=== PATIENT | female | born 1995 | race Caucasian/White ===

== ENCOUNTER 2016-06-09 01:54 | Emergency (ER) | payer BC ==
[~2016-06-09] VITALS: Ht 162.6 cm; Wt 66.7 kg
[2016-06-09 02:09] VITALS: TEMP 36.4; Ht 162.6 cm; Wt 66.7 kg
[2016-06-09] MEDS ORDERED: BCPILLS PO (02:33)
[2016-06-09 02:50] VITALS: BP 109/95; PULSE 93; O2SAT 100
--- NOTE | 2016-06-09 07:55 | DIAGNOSTIC IMAGING REPORT ---
LEFT THUMB 3 VIEWS CLINICAL HISTORY: Left thumb injury. FINDINGS: 3 portable views of the left thumb are obtained. No prior studies are available for comparison at the time of dictation. The skeletal structures are well mineralized. There is posterior dislocation at the first metacarpophalangeal joint. No definite fracture is seen. Overlying soft tissue edema is noted. The first carpometacarpal and interphalangeal joints are well-maintained. IMPRESSION: 1. There is posterior dislocation at the first metacarpophalangeal joint with overlying soft tissue edema. 2. No definite fracture is seen. Electronically signed by: Contreras Baumann M.D. 06/09/2016 7:53 AM Dictated Date/Time: 06/09/2016 7:52 AM
--- NOTE | 2016-06-09 07:56 | DIAGNOSTIC IMAGING REPORT ---
LEFT THUMB 3 VIEWS CLINICAL HISTORY: Postreduction examination. FINDINGS: 3 portable views of left thumb are compared to study performed earlier the same day 06/09/2016. The skeletal structures are well mineralized. There is been successful reduction of the dislocated first metacarpophalangeal joint with confucianism of near-anatomic alignment. The first carpometacarpal and interphalangeal joints are preserved. No fracture is seen. Mild overlying soft tissue edema is noted. IMPRESSION: 1. Successful reduction of the dislocated first metacarpophalangeal joint. 2. No fracture is identified. Electronically signed by: Contreras Baumann M.D. 06/09/2016 7:54 AM Dictated Date/Time: 06/09/2016 7:53 AM
--- NOTE | 2016-06-09 23:25 | EMERGENCY ROOM VISIT NOTE ---
ED Visit Note First contact with patient: 02:15 CHIEF COMPLAINT: Finger injury today HISTORY OF PRESENT ILLNESS: This 20 year old female patient presents to the emergency department after they injured the left 1st finger about one hour ago. The patient states that she was leaving a bar, when she slipped, and jammed her finger against a wall. The patient has been unable to move it at the PIP joint since and there is moderate and constant pain. The patient rates the pain as dull and 6/10. No previous injuries to the finger. The patient has taken nothing relief of the pain. REVIEW OF SYSTEMS: A 6 system review of systems was completed with positives and pertinent negatives listed in the HPI. ALLERGIES: Amoxicillin MEDICATIONS: No chronic medications PMH: Otherwise healthy SOCIAL HISTORY: Student who lives locally PHYSICAL EXAM: Vital Signs: Reviewed Nurse's notes, vital signs stable. GENERAL : White female, in no acute distress, but appears to be in pain, well-developed , well-nourished. MUSCULOSKELETAL: There is an obvious deformity at the proximal joint of the first finger with dorsal dislocation of the middle phalanx. The patient is unable to move the distal joint. The distal dislocated portion of the finger is pale but is sensate. SKIN: There is no laceration or abrasion. Capillary refill is less than two seconds. LEFT THUMB 3 VIEWS CLINICAL HISTORY: Left thumb injury. FINDINGS: 3 portable views of the left thumb are obtained. No prior studies are available for comparison at the time of dictation. The skeletal structures are well mineralized. There is posterior dislocation at the first metacarpophalangeal joint. No definite fracture is seen. Overlying soft tissue edema is noted. The first carpometacarpal and interphalangeal joints are well-maintained. IMPRESSION: 1. There is posterior dislocation at the first metacarpophalangeal joint with overlying soft tissue edema. 2. No definite fracture is seen. LEFT THUMB 3 VIEWS CLINICAL HISTORY: Postreduction examination. FINDINGS: 3 portable views of left thumb are compared to study performed earlier the same day 06/09/2016. The skeletal structures are well mineralized. There is been successful reduction of the dislocated first metacarpophalangeal joint with faith of near-anatomic alignment. The first carpometacarpal and interphalangeal joints are preserved. No fracture is seen. Mild overlying soft tissue edema is noted. IMPRESSION: 1. Successful reduction of the dislocated first metacarpophalangeal joint. 2. No fracture is identified. EMERGENCY DEPARTMENT COURSE: I examined the patient. An X-ray of the left first finger was reviewed by myself and my attending and shows a dislocation of the thumb. Verbal consent was obtained to perform the procedure. The joint was reduced by applying a steady and rapid axial distraction of the dislocated portion at the joint while the proximal portion was stabilized with the other hand. Following this motion of the joint was normal and full and the patient could move it normally also. Neurovascular status was rechecked and intact. Post-reduction X-ray was reviewed by myself and radiology and shows successful reduction. The patient was discharged home in stable condition. Current/Historical Medications Scheduled Control Pills ( Control Pills), 1 TAB PO DAILY Allergies Coded Allergies: Amoxicillin (Verified Allergy, Intermediate, HIVES, 06/09/16) Vital Signs Date Time Temp Pulse Resp B/P Pulse Ox O2 Delivery O2 Flow Rate FiO2 06/09/16 02:50 93 16 109/95 100 06/09/16 02:09 36.4 77 18 152/93 95 Room Air Departure Information Impression Primary Impression: Dislocation of left thumb Dispostion Home / Self-Care Condition GOOD Referrals Tavares Adrian MD Forms WORK / SCHOOL INSTRUCTIONS, HOME CARE DOCUMENTATION FORM, IMPORTANT VISIT INFORMATION Patient Instructions [facility] Additional Instructions You were seen and evaluated today on an emergency basis only. This is not a substitute for, or an effort to provide, complete comprehensive medical care. It is not possible to recognize and treat all injuries or illnesses in a single emergency department visit. For this reason it is recommended that you followup with [facility] orthopedics , Dr. Adrian's office, this week for ongoing care and evaluation. Call the office on Saturday to help make your appointment. Wear your splint until otherwise instructed by orthopedics. For baseline pain relief you may alternate ibuprofen and acetaminophen every 4 hours for pain control. Take 600 mg ibuprofen (Advil) and then 4 hours later take 1000 mg acetaminophen (Tylenol). Do not take more than 3000 mg acetaminophen in a single day. You are welcome to return to the emergency department anytime with new, worsening, or concerning symptoms.
== END 2016-06-09 02:51 | disposition home or self-care (01) ==
LOC: C.EDB 01:57
DX: S63.115A Dislocation of metacarpophalangeal joint of left thumb, initial encounter (principal); W22.09XA Striking against other stationary object, initial encounter; Y92.89 Other specified places as the place of occurrence of the external cause; Z79.3 Long term (current) use of hormonal contraceptives